=== PATIENT | female | born 2000 | race Hispanic/Latino ===

== ENCOUNTER 2021-03-23 14:13 | Emergency (ER) | payer SELFPAY ==
[2021-03-23] MEDS ORDERED: TETANUS,DIPH,PERTUSS(ACELL) VACCINE 0.5 ML SYRINGE IM ONE (17:45)
[2021-03-23 17:48] VITALS: BP 149/91
--- NOTE | 2021-03-23 17:51 | Emergency Department Report ---
ED Animal Bite HPI - General Chief Complaint: Animal Bite Stated Complaint: DOG BITE Time Seen by Provider: 03/23/21 17:01 Source: patient Mode of arrival: Ambulatory Limitations: No Limitations - History of Present Illness Initial Comments: Patient is a 20-year-old female presents emergency room with complaints of a dog bite to the right hand that occurred just prior to arrival. She states that she was dog sitting. She states that she was trying to put the dog into the cage and that the dog does not like the cage and sometimes will become cage ag gressive. She states that the dog clamped down and then quickly released. She is fully able to move the right upper extremity and denies any numbness or weakness. She is unsure of her last tetanus immunization. She states that the dog was fully vaccinated. No past medical history. No allergies to medications. - Related Data Previous Rx's Medication Instructions Recorded Last Taken Type Amoxicillin/Potassium Clav 1 each PO BID 7 Days #14 tablet 03/23/21 Unknown Rx [Augmentin 875-125 Tablet] Allergies Allergy/AdvReac Type Severity Reaction Status Date / Time No Known Allergies Allergy Unverified 03/23/21 14:25 ED Review of Systems ROS: Stated complaint: DOG BITE Other details as noted in HPI Comment: All other systems reviewed and negative ED Past Medical Hx - Past Medical History Previous Medical History?: No - Medications Home Medications: Home Medications Medication Instructions Recorded Confirmed Last Taken Type Amoxicillin/Potassium Clav 1 each PO BID 7 Days #14 tablet 03/23/21 Unknown Rx [Augmentin 875-125 Tablet] ED Physical Exam - General Limitations: No Limitations General appearance: alert, in no apparent distress - Head Head exam: Present: atraumatic, normocephalic - Eye Eye exam: Present: normal appearance - ENT ENT exam: Present: mucous membranes moist - Extremities Exam Extremities exam: Present: other (there are 4 shallow less than 1 cm lacerations to the right hand, no foreign body, FROM of the RUE, neurovascularly intact) - Neurological Exam Neurological exam: Present: alert, oriented X3 - Psychiatric Psychiatric exam: Present: normal affect, normal mood - Skin Skin exam: Present: warm, dry ED Course Vital Signs 03/23/21 14:26 Temperature 99.5 F Pulse Rate 90 Respiratory 20 Rate Blood Pressure 149/91 O2 Sat by Pulse 99 Oximetry - Reevaluation(s) Reevaluation #1: 03/23/21 17:58 Ordering Physician: RHINA VALLE Date of Service: 03/23/21 Procedure(s): XR hand 3+V RT Accession Number(s): [id number] cc: RHINA VALLE Fluoro Time In Minutes: Right hand radiograph, 3 views HISTORY: Dog bite COMPARISON: None FINDINGS: No acute fracture or malalignment. No focal soft tissue abnormality. No soft tissue gas or radiopaque foreign body. IMPRESSION: No acute process. Signer Name: Sonali Emmanuel MD Signed: 03/23/2021 5:50 PM Workstation Name: [id number] Transcribed By: JS Dictated By: SONALI EMMANUEL MD Electronically Authenticated By: SONALI EMMANUEL MD Signed Date/Time: 03/23/211749 DD/ 48 TD/TT: - Consultations Consultation #1: Patient is a 20-year-old female presents emergency room with complaints of a dog bite to the right hand that occurred just prior to arrival. She states that she was dog sitting. She states that she was trying to put the dog into the cage and that the dog does not like the cage and sometimes will become cage a ggressive. She states that the dog clamped down and then quickly released. She is fully able to move the right upper extremity and denies any numbness or weakness. She is unsure of her last tetanus immunization. She states that the dog was fully vaccinated. No past medical history. No allergies to medications. vss. on exam:there are 4 shallow less than 1 cm lacerations to the right hand, no foreign body, FROM of the RUE, neurovascularly intact. XR right hand: IMPRESSION: No acute process. pt given tdap. wound care performed by EMT. given prescription for augmentin. advised pt Please take medication as prescribed. May use triple antibiotic or Neosporin ointment. Please keep areas clean and dry. Wash with antibacterial soap and water pat dry. No hot tub, no pool, no soaking in water. Showering is fine. Follow-up with your primary care doctor for reexamination. Return to emergency room for new or symptoms. Critical care attestation.: If time is entered above; I have spent that time in minutes in the direct care of this critically ill patient, excluding procedure time. ED Disposition Clinical Impression: Dog bite of right hand Qualifiers: Encounter type: initial encounter Qualified Code(s): S61.451A - Open bite of right hand, initial encounter Disposition: TO HOME OR SELFCARE Is pt being admited?: No Does the pt Need Aspirin: No Condition: Stable Instructions: Animal Bite, Adult, [id number] Additional Instructions: Please take medication as prescribed. May use triple antibiotic or Neosporin ointment. Please keep areas clean and dry. Wash with antibacterial soap and water pat dry. No hot tub, no pool, no soaking in water. Showering is fine. Follow-up with your primary care doctor for reexamination. Return to emergency room for new or symptoms. Prescriptions: Amoxicillin/Potassium Clav [Augmentin 875-125 Tablet] 1 each PO BID 7 Days #14 tablet Referrals: PRIMARY CARE, [Primary Care Provider] - 3-5 Days Time of Disposition: 17:58 Print Language: YI
--- NOTE | 2021-03-23 17:54 | XRay Report ---
Right hand radiograph, 3 views HISTORY: Dog bite COMPARISON: None FINDINGS: No acute fracture or malalignment. No focal soft tissue abnormality. No soft tissue gas or radiopaque foreign body. IMPRESSION: No acute process. Signer Name: Robin Mitchell MD Signed: 03/23/2021 5:50 PM Workstation Name: [id number]
[2021-03-23] MEDS ORDERED: NEOMY 3.5 MG/BACIT 400 UNITS/POLY B 5000 UNITS/GM OINT PACKET TP ONE (17:56)
== END 2021-03-23 18:25 | disposition home or self-care (01) ==
LOC: ED 14:13
DX: S61.411A Laceration without foreign body of right hand, initial encounter (principal); Z79.899 Other long term (current) drug therapy; W54.0XXA Bitten by dog, initial encounter; Y93.89 Activity, other specified; Y92.89 Other specified places as the place of occurrence of the external cause; Y99.8 Other external cause status
CPT/HCPCS: 73130; 90471; 90715; 99283; A6250